=== PATIENT | male | born 1970 | race Two or more races ===

== ENCOUNTER 2024-06-03 06:55 | Inpatient (IN) | payer OTHER ==
[2024-05-31 11:06] LABS: Urine Bacteria None Seen /hpf (None Seen)
[2024-05-31 11:11] LABS: Basophils # (auto) 0.1 10 ^3/uL (0-0.2); Basophils % (auto) 0.9 % (0.0-2.0); Eosinophils # (auto) 0.3 10 ^3/uL (0-0.8); Eosinophils % (auto) 2.5 % (0.0-7.0); Hematocrit 47.9 % (41.0-53.0); Hemoglobin 16.1 g/dL (13.5-17.5); Lymphocytes # (auto) 1.8 10 ^3/uL (0.4-5.4); Lymphocytes % (auto) 12.9 % (10.0-50.0); Mean Corpuscular Hemoglobin 31.1 pg (28.0-32.0); Mean Corpuscular Hgb Conc. 33.6 g/dL (32.0-36.0); Mean Corpuscular Volume 92.4 fL (80.0-100.0); Monocytes % (auto) 7.3 % (0.0-12.0); Neutrophils # (auto) 10.6 10 ^3/uL (1.6-8.6); Neutrophils % (auto) 76.4 % (37.0-80.0); Platelet Count (auto) 230 10^3/uL (140-450); Red Blood Cells 5.18 10^6/uL (4.5-5.90); Red Cell Distribution Width 13.5 % (11.8-14.3); White Blood Cell 13.9 10^3/uL (4.4-10.8)
[2024-05-31 11:23] LABS: Urine Blood Negative /uL (Negative); Urine Clarity Clear (Clear); Urine Color Light-Yellow (Yellow); Urine Protein, UAD Negative (Negative); Urine Specific Gravity 1.013 (1.001-1.035); Urine Squamous Epithelial Cell FEW /hpf (<5); Urine Urobilinogen Normal (Negative); Urine WBC 1 /HPF (0-3)
[2024-05-31 11:33] LABS: INR 0.97 (0.9-1.15); Partial Thromboplastin Time 27.5 SEC (24.5-34.5); Prothrombin Time 10.3 sec (9.3-11.8)
[2024-05-31 11:52] LABS: Alanine Aminotransferase 57 U/L (7-40); Albumin 5.1 g/dL (3.2-4.8); Alkaline Phosphatase 99 U/L (46-116); Anion Gap 4 (5-15); Aspartate Aminotransferase 31 U/L (13-40); BUN/Creatinine Ratio 15.5 (10.0-20.0); Blood Urea Nitrogen 15 mg/dL (9-23); Calcium 10.6 mg/dL (8.7-10.4); Carbon Dioxide 29 mmol/L (20-31); Chloride 107 mmol/L (98-107); Glucose 158 mg/dL (74-106); Potassium 4.5 mmol/L (3.5-5.1); Sodium 140 mmol/L (136-145); Total Protein 7.6 g/dL (5.7-8.2)
[2024-05-31 11:53] LABS: Bilirubin, Total 0.6 mg/dL (0.2-1.0)
[~2024-06-03] VITALS: Ht 170.2 cm; Wt 97.5 kg
[2024-06-03] VITALS (9 sets, daily range): BP systolic 83–102; BP diastolic 38–56; PULSE 68–99; RESP 16–19; TEMP 97.3–97.9; O2SAT 95–100
[~2024-06-03 06:55] MED LIST: ATOR-507 PO; CETI-195 PO; LISI-283 PO; MELA1TAB PO; NAP500T PO; SERT-160 PO; SILD100T PO
[2024-06-03] MEDS: ACETAMINOPHEN IV 100 ML IV ONE (07:34)
[2024-06-03] MEDS ORDERED: KETAMINE 50mg/ML 1ml syringe ONE (08:24)
[2024-06-03] MEDS ORDERED: fentaNYL CITRATE 100 MCG/2 ML VL ONE (08:24)
[2024-06-03] MEDS ORDERED: MORPHINE SULF PF 5 MG/10 ML VIAL ONE (08:24)
[2024-06-03] MEDS ORDERED: ONDANSETRON HCL 4 MG/2 ML VIAL ONE (08:25)
[2024-06-03] MEDS ORDERED: SODIUM CHLORIDE LOCK 10 ML ONE (08:25)
[2024-06-03] MEDS ORDERED: DexAMETHasone SOD PHOS 10MG/1ML VIAL INJ ONE (08:25)
[2024-06-03] MEDS ORDERED: MIDAZOLAM HCL 2MG/2ML 2ml VIAL (1mg/ml) ONE ×2 (08:25)
[2024-06-03] MEDS ORDERED: LIDOCAINE 1% INJ PF 5ML AMP ONE (08:25)
[2024-06-03] MEDS ORDERED: PROPOFOL 10 MG/ML 20 ML IV ONE (08:25)
[2024-06-03] MEDS: PREGABALIN CAPSULE 75 MG CAP PO ONE (08:30)
[2024-06-03] MEDS: CELECOXIB 100 MG CAP PO ONE (08:30)
[2024-06-03] MEDS: ACETAMINOPHEN IV 1000 MG/100ML (10MG/ML) IV ONE (08:30)
[2024-06-03] MEDS: CELECOXIB 100 MG CAP ONE (08:40)
[2024-06-03] MEDS: BUPIVACAINE 0.25% INJ 50ML VIAL ONE (09:02)
[2024-06-03] MEDS: VANCOMYCIN HCL 1000 MG VL ONE ×2 (09:04→10:24)
[2024-06-03] MEDS: TETRACAINE 1% INJ 2 ML VIAL IJ ONE (09:20)
[2024-06-03] MEDS: ceFAZolin 2 GM/D5W100ml 100 ML IV ONE (09:33)
[2024-06-03] MEDS: CEFEPIME 1GM/ 50ML 50 ML IV ONE (09:39)
[2024-06-03] MEDS: TRANEXAMIC ACID 20 ML ONE (09:50)
[2024-06-03] MEDS: ceFAZolin 1GM/50ML 50 ML IV SCH (10:15)
[2024-06-03] MEDS ORDERED: HYDROmorphone HCL 2 MG/ML VL/or syr IV PRN ×3 (10:15→11:30)
[2024-06-03] MEDS ORDERED: ONDANSETRON HCL 4 MG/2 ML VIAL IV PRN (10:15)
[2024-06-03] MEDS ORDERED: OXYCODONE W/ ACETAMINOPHEN 5/325MG TABLET PO PRN (10:15)
[2024-06-03] MEDS: LACTATED RINGER'S 1,000 ML IV SCH (10:15)
[2024-06-03] MEDS ORDERED: NITROGLYCERIN 0.4 MG SL TAB SL PRN (10:15)
[2024-06-03] MEDS ORDERED: MORPHINE SULFATE INJ 2 MG/ml SYRG IV PRN ×2 (10:15→12:11)
--- NOTE | 2024-06-03 11:09 | DVH ---
CLINICAL INDICATION: INTRAOPERATIVE TECHNIQUE: Intraoperative AP view of the left hip was performed. XY L HIP 1V XRAY Comparison: Report of left hip radiographs dated 02/19/2024. FINDINGS/IMPRESSION: : Postoperative changes of left total hip arthroplasty without evidence of periprosthetic fracture, dis location, or other complication.
[2024-06-03] MEDS: ONDANSETRON HCL 4 MG/2 ML VIAL IV ONE (11:30)
[2024-06-03] MEDS ORDERED: diphenhdrAMINE HCL 50 MG/1 ML VL IV PRN (11:30)
[2024-06-03] MEDS ORDERED: KETOROLAC TROMETH 30 MG/ML 1ML VIAL IV ONE (11:30)
[2024-06-03] MEDS ORDERED: MORPHINE SULFATE 4 MG/ML SYR/VIAL IV PRN (11:30)
[2024-06-03] MEDS ORDERED: NALOXONE HCL 0.4 MG/ML VIAL IV PRN (11:30)
[2024-06-03] MEDS: SODIUM CHLOR 0.9% PF (SALINE LOCK) 10ML VIAL/SYR IV SCH (14:00)
--- NOTE | 2024-06-03 14:09 | DVH ---
CLINICAL INDICATION: left SURYA TECHNIQUE: 1 radiographic views of the pelvis were obtained. Comparison: None FINDINGS/IMPRESSION: There is no evidence of acute fracture or dislocation. Status post left hip arthroplasty. The visualized joint space is well maintained. The alignment is anatomical. There is no radiopaque foreign body.
--- NOTE | 2024-06-03 18:07 | DVHOP2 ---
Operative Report - 2 Report Details Date: 06/03/24 Preop Diagnosis: Left hip osteoarthritis Postop Diagnosis: as above Surgeon: Robert Velarde MD Fisher Quahog: Ajit ROSA Anesthesiologist: Ad LAND Anesthesia: Regional Consent: The patient was informed of the risks and benefits of the procedure. These include but are not limited to complications of anesthesia, postoperative infection, incomplete relief of symptoms, recurrence of symptoms, damage to blood vessels, nerves and tendons, deep venous thrombosis, pulmonary embolism and possible need for repeat surgery in the future. Estimated Blood Loss: 300 cc Name of Procedure Performed Left total hip arthroplasty using computer navigation Procedure Details Procedure Details: INDICATION: This patient has failed non-operative treatments for hip arthritis and is now indicated for a total hip replacement. Preoperatively in the waiting area as well as in the office, I had a long discussion with the patient regarding the plan, the expected outcome, the risks, benefits, and alternatives of surgery. The risks include, but are not limited to, infection (which may require future surgery and removal of implants) , bleeding (which may require a transfusion), damage to nerves, arteries, veins, tendons, muscles and other adjacent structures. Also discussed the possibilities of dislocation, leg-length discrepancy, intraoperative fractures, implant loosening, heterotopic bone formation, and revision for variety of reasons, and medical complications etc. This was discussed at length and consent has been obtained. DESCRIPTION OF PROCEDURE: In the preoperative holding area, the consent was reviewed and the appropriate extremity was verified by the patient and marked with my initials. The patient was then transferred to the operating theatre. Appropriate anesthetia was induced. All bony prominences were well padded. A time out was performed verifying the side and site of surgery according to standard protocol. Preoperative antibiotics were given. Tranexamic acid was given. The patient was then placed in the lateral decubitus position and fixed with rigid pelvic fixation. All bony prominences were well padded and an axillary roll was placed. The affected hip area was then prepped and draped in the usual sterile fashion. Using an 11-blade, three stab incisions were made over the iliac crest. Two threaded guide pins were inserted into the crest confirming to be in bone. The pelvic array was attached to the pins and tightened. We made a standard posterolateral incision sharply through the skin and carried our dissection down through subcutaneous tissue to the underlying fascia achieving hemostasis where necessary. We incised the fascia in line with our incision. We identified and protected the sciatic nerve. We took down the external rotators and hip capsule from their insertion into the greater trochanter, tagged them and retracted them posteriorly for further protection of the sciatic nerve. A check point was placed into the greater trochanter and the hip center and leg length length were registered. We then dislocated the femoral head and performed an osteotomy of the femoral neck in accordance with our pre-operative plan. The labrum was excised with a long-handle knife, and we exposed the acetabular rim and cotyloid fossa. We then reamed up to our final size in accordance with the preoperative plan. We copiously irrigated and then impacted the final cup into position. We confirmed the position with the robotic navigation guidance. We placed a acetabular dome screws into the posterior-superior quadrant in the usual fashion. We irrigated the cup and impacted the liner, checking to make sure it was well seated. Attention was then turned to the femur. We used a box osteotome followed by a canal finder to gain entry to the canal. Intramedullary contents were suctioned and care was taken to ensure they did not touch the tissues. We sequentially reamed until good cortical contact, then broached up to out final size. We trialed with the appropriate femoral neck and head and reduced the hip. The hip was taken through a full range of motion. The hip soft tissues were examined in extension and external rotation, the anterior capsule and IT band were palpated, and combined anteversion was determined to be 40 degrees. The hip was stable at maximum flexion, at 90 degrees of flexion and 45 degrees of internal rotation and the position of sleep. Leg lengths were restored as shown using the computer navigation, and the trial LTC matched preoperative and intraoperative templating. The hip was then dislocated and trial components removed. We copiously irrigated the wound and impacted the final femoral stem into position. The femoral head was impacted onto a clean and dry trunion and confirmed to be s eated. The hip was reduced ensuring to tissues in the acetabular cup. We again brought it through a full functional range of motion and there was no evidence for dislocation, instability, or impingement. The checkpoint was removed. A dilute betadine solution (17.5mL in 500mL saline) was used to wash the joint and left to sit for 3 minutes. This was then irrigated out with copious amounts of pulse lavage. We sprinkled 1g vancomycin powder below the fascia and 1g above the fascia. We copiously irrigated the wound and soft tissues. The short external rotators and capsule were repaired to the greater trochanter through drill holes, and the quadratus was repaired. We palpated the sciatic nerve in continuity without tension. The fascia was closed with vicryl and a barbed suture. We closed over the fascia with vicryl suture and re-approximated the skin with khalif. A sterile dressing was placed. We returned the patient to the supine position. We verified all lower extremity compartments were soft and compressible and that we had intact distal pulses and checked our leg length faith. We took an AP Pelvis in the operating room, which we reviewed prior to transfer. The patient was then transferred to the recovery room in stable condition. Condition Good Disposition Still a Patient ROBERT VELARDE MD Jun 03, 2024 18:07
[2024-06-03] MEDS: MELATONIN 5 MG PO SCH (22:00)
[2024-06-03] MEDS: ATORVASTATIN 20 MG TAB PO SCH (22:48)
[2024-06-03] MEDS: DOCUSATE SOD 100 MG CAP PO SCH (22:49)
[2024-06-03] MEDS: oxyCODONE ER 10 MG TAB PO SCH (22:50)
[2024-06-03] MEDS: SERTRALINE HCL 50 MG TAB PO SCH (22:51)
[2024-06-04] VITALS (23 sets, daily range): BP systolic 87–127; BP diastolic 38–75; PULSE 64–107; RESP 15–18; TEMP 97.8–99.9; O2SAT 92–98
[2024-06-04] MEDS: SODIUM CHLORIDE 0.9% 500 ML IV ONE (00:46)
[2024-06-04 07:45] LABS: Hematocrit 35.8 % (41.0-53.0); Hemoglobin 11.9 g/dL (13.5-17.5)
[2024-06-04 07:50] LABS: Alkaline Phosphatase 68 U/L (46-116); Anion Gap 5 (5-15); BUN/Creatinine Ratio 10.1 (10.0-20.0); Blood Urea Nitrogen 19 mg/dL (9-23); Calcium 9.3 mg/dL (8.7-10.4); Carbon Dioxide 25 mmol/L (20-31); Potassium 4.1 mmol/L (3.5-5.1); Sodium 139 mmol/L (136-145)
[2024-06-04 07:51] LABS: Albumin 3.6 g/dL (3.2-4.8); Bilirubin, Total 0.5 mg/dL (0.2-1.0)
[2024-06-04 07:53] LABS: Alanine Aminotransferase 64 U/L (7-40); Aspartate Aminotransferase 64 U/L (13-40); Chloride 109 mmol/L (98-107); Glucose 181 mg/dL (74-106); Total Protein 5.5 g/dL (5.7-8.2)
[2024-06-04] MEDS: ENOXAPARIN SOD 40 MG/0.4 ML SYRINGE SC SCH (08:14)
[2024-06-04] MEDS: CEFEPIME 1GM/ 50ML 50 ML IV SCH ×2 (08:14→21:56)
[2024-06-04] MEDS: HYDROCHLOROTHIAZIDE PO SCH (08:38)
[2024-06-04] MEDS: LISINOPRIL PO SCH (08:38)
[2024-06-04] MEDS: CETIRIZINE HCL 10 MG PO SCH (08:38)
--- NOTE | 2024-06-04 12:44 | DVHHP2 ---
Review of Systems Allergies: Coded Allergies: NO KNOWN ALLERGIES (Unverified , 05/31/24) Medications Current Medications Medications Dose Ordered Sig/Martha Route Start Time Stop Time Status Last Admin Dose Admin Atorvastatin Calcium 40 mg HS PO 06/03/24 22:00 06/03/24 22:48 40 MG Patient Own Medication 10 mg DAILY PO 06/04/24 10:00 Patient Own Medication 1 tab DAILY PO 06/04/24 10:00 Patient Own Medication 1 tab HS PO 06/03/24 22:00 Sertraline HCl 100 mg HS PO 06/03/24 22:00 06/03/24 22:51 100 MG Patient Own Medication 100 mg DAILY PO 06/04/24 10:00 Hold Cefepime HCl 50 ml @ 12.5 mls/hr DAILY IV 06/04/24 10:00 06/04/24 08:14 12.5 MLS/HR Lactated Ringer's 1,000 ml @ 100 mls/hr Q10H IV 06/03/24 10:15 Sodium Chloride 10 ml Q8HR IV 06/03/24 14:00 06/04/24 06:00 10 ML Oxycodone/ Acetaminophen 1 tab Q4HP PRN PO 06/03/24 10:15 Hydromorphone HCl 1 mg Q2HP PRN IV 06/03/24 10:15 Oxycodone HCl 10 mg Q12HR PO 06/03/24 22:00 06/03/24 22:50 10 MG Ondansetron HCl 4 mg Q6HP PRN IV 06/03/24 10:15 Docusate Sodium 100 mg Q12HR PO 06/03/24 22:00 06/04/24 08:15 100 MG Enoxaparin Sodium 40 mg DAILY SC 06/04/24 10:00 06/04/24 08:14 40 MG Nitroglycerin 0.4 mg Q5MINP PRN SL 06/03/24 10:15 Morphine Sulfate 2 mg Q30M PRN IV 06/03/24 10:15 Diphenhydramine HCl 25 mg Q4HP PRN IV 06/03/24 11:30 Exam Vital Signs Vital Signs Date Time Temp Pulse Resp B/P (MAP) Pulse Ox O2 Delivery O2 Flow Rate FiO2 06/04/24 11:53 95 16 96 06/04/24 10:12 98.8 107/59 (75) 98.8 06/04/24 08:00 Nasal Cannula* 2 28 Labs/Xrays Labs Test 06/04/24 06:55 05/31/24 11:00 Range/Units Hemoglobin 11.9 #L 13.5-17.5 g/dL Hematocrit 35.8 #L 41.0-53.0 % Sodium Level 139 136-145 mmol/L Potassium Level 4.1 3.5-5.1 mmol/L Chloride Level 109 H 98-107 mmol/L Carbon Dioxide Level 25 20-31 mmol/L Anion Gap 5 5-15 Blood Urea Nitrogen 19 9-23 mg/dL Creatinine 1.89 H 0.700-1.30 mg/dL Glomerular Filtration Rate Calc 42 >90 mL/min BUN/Creatinine Ratio 10.1 10.0-20.0 Serum Glucose 181 H 74-106 mg/dL Calcium Level 9.3 8.7-10.4 mg/dL Total Bilirubin 0.5 0.2-1.0 mg/dL Aspartate Amino Transferase (AST) 64 H 13-40 U/L Alanine Aminotransferase (ALT) 64 H 7-40 U/L Alkaline Phosphatase 68 46-116 U/L Total Protein 5.5 L 5.7-8.2 g/dL Albumin 3.6 3.2-4.8 g/dL White Blood Count 13.9 H 4.4-10.8 10^3/uL Red Blood Count 5.18 4.5-5.90 10^6/uL Mean Corpuscular Volume 92.4 80.0-100.0 fL Mean Corpuscular Hemoglobin 31.1 28.0-32.0 pg Mean Corpuscular Hemoglobin Concent 33.6 32.0-36.0 g/dL Red Cell Distribution Width 13.5 11.8-14.3 % Platelet Count 230 140-450 10^3/uL Mean Platelet Volume 7.5 6.9-10.8 fL Neutrophils (%) (Auto) 76.4 37.0-80.0 % Lymphocytes (%) (Auto) 12.9 10.0-50.0 % Monocytes (%) (Auto) 7.3 0.0-12.0 % Eosinophils (%) (Auto) 2.5 0.0-7.0 % Basophils (%) (Auto) 0.9 0.0-2.0 % Neutrophils # (Auto) 10.6 H 1.6-8.6 10 ^3/uL Lymphocytes # (Auto) 1.8 0.4-5.4 10 ^3/uL Monocytes # (Auto) 1.0 0-1.3 10 ^3/uL Eosinophils # (Auto) 0.3 0-0.8 10 ^3/uL Basophils # (Auto) 0.1 0-0.2 10 ^3/uL Nucleated Red Blood Cells 0.0 % Prothrombin Time 10.3 9.3-11.8 sec Prothrombin Time INR 0.97 0.9-1.15 Activated Partial Thromboplast Time 27.5 24.5-34.5 SEC Urine Color Light-yellow Yellow Urine Clarity Clear Clear Urine pH 5.0 5.0-9.0 Urine Specific [place] 1.013 1.001-1.035 Urine Protein Negative Negative Urine Ketones Negative Negative Urine Blood Negative Negative /uL Urine Nitrite Negative Negative Urine Bilirubin Negative Negative Urine Urobilinogen Normal Negative mg/dL Urine Leukocyte Esterase Negative Negative /uL Urine RBC <1 0 - 3 /hpf Urine Microscopic WBC 1 0-3 /HPF Urine Squamous Epithelial Cells Few <5 /hpf Urine Bacteria None seen None Seen /hpf Urine Glucose Normal Normal mg/dL Assessment/Plan Assessment/Plan see dictated note Plan discussed with: Patient My Orders Orders - BREEZY BUENO MD Procedure Category Date Status Time Hydromorphone PHA 06/04/24 Verified Injection (Dilaudid 12:45 Nicotine 14mg/24hr PHA 06/04/24 Verified (Nicoderm 14mg/24hr) 12:45 Nicotine 14mg/24hr PHA 06/05/24 Verified (Nicoderm 14mg/24hr) 10:00 Discontinue Tele YULIET 06/04/24 Verified 12:41 Transfer Orders XFER 06/04/24 Verified 12:41 Complete Blood Count LAB 06/05/24 Verified 06:00 Comprehensive LAB 06/05/24 Verified Metabolic Panel 06:00 Date of Service: Jun 04, 2024 Billing Provider: BREEZY BUENO MD Common Visit Codes: [id number] INP/OBS CARE (HIGH) Secondary Visit Codes: [id number] CHNG SMOKING >10MIN BREEZY BUENO MD Jun 04, 2024 12:44
[2024-06-04] MEDS ORDERED: HYDROmorphone HCL 2 MG/ML VL/or syr IV PRN (12:45)
--- NOTE | 2024-06-04 12:55 | DVHHP ---
ADMIT DATE: 06/03/2024 HISTORY OF PRESENT ILLNESS: The patient is a 54-year-old gentleman who was admitted after he underwent surgery on the left hip for DJD of the hip. The patient at this time denies any significant pain. No chest pain or shortness of breath. No nausea or vomiting. REVIEW OF SYSTEMS: Review of rest systems are otherwise currently negative. PAST MEDICAL HISTORY: Significant for hypertension, hyperlipidemia, PTSD, depression, sleep apnea. MEDICATIONS: Include Lipitor, lisinopril, hydrochlorothiazide, sertraline. ALLERGIES: No known drug allergies. SOCIAL HISTORY: Smokes about half a pack a day. Denies alcohol intake. Lives at home with his . FAMILY HISTORY: Negative. PHYSICAL EXAMINATION: GENERAL: The patient is awake and alert. VITAL SIGNS: Temperature of 98.8, pulse 93 per minute, blood pressure 107/59. SHEENT: Unremarkable. There is no JVD. No pedal edema. LUNGS: Equal bilaterally. No added sounds. CARDIOVASCULAR: S1 and S2 is regular. No murmurs. ABDOMEN: Soft. There is no organomegaly. NEUROLOGIC: Nonfocal. MUSCULOSKELETAL: The left hip currently has a dressing. ASSESSMENT AND PLAN: * Hypertension for which the patient's blood pressure medication will be held. * Acute renal failure, questionable vasomotor nephropathy. His renal function will be monitored. * Sleep apnea for which he will continue on BiPAP. * Obesity. * Hyperlipidemia. * Posttraumatic stress disorder/depression for which he will continue sertraline. * Status post left hip surgery for degenerative joint disease of the hip for which the patient will be placed on pain medication and physical therapy. * Tobacco abuse. The patient was advised to quit. He has been placed on nicotine patch. Time spent was 11 minutes. MD JEFFY Carlson/PATTI TID: [id number] RECEIPT: [id number]
[2024-06-04] MEDS: NICOTINE 14 MG/24HR TOPICAL PATCH TD ONE (16:38)
[2024-06-05] VITALS (8 sets, daily range): BP systolic 126–144; BP diastolic 79–82; PULSE 85–102; RESP 17–18; TEMP 98.3–98.9; O2SAT 97–99
--- NOTE | 2024-06-05 07:44 | DVHDS2 ---
Discharge Summary Date of Admission Jun 03, 2024 at 10:01 Date of Discharge: Jun 05, 2024 Wounds: If the wound is draining please change the gauze pad on the wound until it stops. If drainage persists past 10 days please notify our office. If there is a sticky gel dressing over your wound, you may leave this in place for as long as it is clean and dry. If it becomes loose or causes skin irritation, it is OK to remove it and place clean gauze over your wound. 1. You might notice some bruising around the surgical site, this is normal. 2. Check your temperature on a daily basis. Please note that a low-grade temp below 101 is not uncommon after surgery especially during the first 3 days. Notify the office if your temperature spikes above 101.5 after the 3rd post- operative date. 3. Many patients experience significant swelling in the thigh, this may extend below the knee and sometimes to the ankle. Swelling increases during the first week and subsides during the following week. 4. Provided you have been on a blood thinner since surgery and have been up and about at least three times per day, the risk of a blood clot is low and this swelling is an expected part of recovery. It will largely or completely resolve by your first post-operative visit. 5. [place], if present, will be removed at 2 weeks during initial post-op visit. Labs/Diagnostic Data: Laboratory Results Test 06/05/24 05:52 05/31/24 11:00 Eosinophils (%) (Auto) 2.5 % (0.0-7.0) Eosinophils # (Auto) 0.3 10 ^3/uL (0-0.8) Basophils # (Auto) 0.1 10 ^3/uL (0-0.2) Nucleated Red Blood Cells 0.0 % Prothrombin Time 10.3 sec (9.3-11.8) Prothrombin Time INR 0.97 (0.9-1.15) Activated Partial Thromboplast Time 27.5 SEC (24.5-34.5) Urine Color Light-yellow (Yellow) Urine Clarity Clear (Clear) Urine pH 5.0 (5.0-9.0) Urine Specific [place] 1.013 (1.001-1.035) Urine Protein Negative (Negative) Urine Ketones Negative (Negative) Urine Blood Negative /uL (Negative) Urine Nitrite Negative (Negative) Urine Bilirubin Negative (Negative) Urine Urobilinogen Normal mg/dL (Negative) Urine Leukocyte Esterase Negative /uL (Negative) Urine RBC <1 /hpf (0 - 3) Urine Microscopic WBC 1 /HPF (0-3) Urine Squamous Epithelial Cells Few /hpf (<5) Urine Bacteria None seen /hpf (None Seen) Urine Glucose Normal mg/dL (Normal) Brief Hx & Hospital Course: s/p left total hip arthroplasty Condition at Discharge: Good Final Diagnosis/Problems List as above Discharge Disposition: Home with Health Services Discharge Instruct/Medications Diet: Regular Diet comment: may advance diet as tolerated, drink plenty of fluids. Avoid alcohol while taking narcotics. Activity: See Comment Activity comment: 1.You can bear as much weight as you tolerate on your hip unless specifically instructed otherwise. You may use the walking aid which you were discharged with and switch to a cane whenever you feel comfortable doing so. You should use an assistive device until you can walk comfortably without it. Keep in mind that every patient moves at their own speed of recovery so take your time. 2.A physical therapist will visit you at home. 3. Although guarantees against a dislocation do not exist, the hip was noted to be sufficiently stable in surgery. Below are motions that you should dischargenot do for 4-6 weeks, depending on the surgical approach used. If there are questions, please call the office. a.Bend forward past 90 degrees b.Sit on a regular low chair, couch, car seat etc... c.Cross your legs d.Use a regular low toilet seat. e.Sleep on your stomach or on either side. 3.High impact activity such as jumping, aerobics, tennis, and skiing are not permitted during the first 3 months after surgery. These activities can contribute to accelerated wear and should be done with caution after this time. Discuss this with your surgeon if you have questions. 4.Although a bath or whirlpool is NOT permitted during the first 2-3 weeks, you may shower as soon as you get home from the hospital provided you are able to keep your bandage clean and dry and there is no wound drainage. If you are unable to place a secured covering over your bandage bed bath/sponge bath may likely be the more appropriate option. 5.Swimming is not permitted until the wound is healed, which typically occurs approximately 3-4 weeks after surgery. Follow Up/Referral: 1.Driving is not permitted within the first 2 weeks. 2.Your first postoperative visit will take place 2weeks after discharge. Please call the office to arrange this appointment. 3.Antibiotic preventative treatment is required before dental or other invasive procedures. Please ask your surgeon about this at your first postoperative visit. Your hip replacement contains metal which may activate metal detectors. You may wish to carry a letter from your surgeon to communicate this to security personnel. If you experience chest pain, shortness of breath or severe painful calf swelling, go to the nearest emergency room to be evaluated. Please call our office once your situation is stabilized. Medications: 1.You will be discharged with pain medication, Aspirin as a blood thinner and sometimes an anti-inflammatory medication such as Celebrex or Mobic might be prescribed. Please follow the instructions regarding these medicines as provided by your nurse at the hospital. 2.Narcotic pain medication has side effects, including constipation. Please ensure you continue to take stool softeners (Colace, Senna) while taking your pain medication to help protect against constipation. Getting up and moving around at least a few times per day helps with this also. 3.Lovenox 40 Sq x 12 days followed by one regular strength 325 mg coated aspirin daily for 4 weeks after surgery. Then, take one baby aspirin, 81 mg daily for 6 weeks more. A major, yet preventable, complication of Orthopaedic Surgery is a blood clot (DVT). It is important not to miss any doses of this important medication. 4.You should restart all of your prescription medications once discharged unless specifically instructed otherwise. 5.Herbal supplements may be restarted 2 weeks after surgery. Discharge Statement: "Patient was advised to return to the ER or call 911 if any headaches, dizziness, shortness of breath, chest pain, abdominal pain, bleeding, fevers, or worsening of medical condition. Patient was counseled about treatment plan, medications, possible side effects, patientverbalized understanding. All questions were answered to the best of my ability. This discharge took greater then 30 minutes in planning, reviewing documentation, counseling the patient, and discussing with other team members." ASSESSMENT ASSESSMENT Assessment as above CHARLY FRAZIER NP Jun 05, 2024 07:44
[2024-06-05 07:49] LABS: Basophils # (auto) 0.1 10 ^3/uL (0-0.2); Basophils % (auto) 0.4 % (0.0-2.0); Eosinophils # (auto) 0.3 10 ^3/uL (0-0.8); Eosinophils % (auto) 1.9 % (0.0-7.0); Hematocrit 35.2 % (41.0-53.0); Hemoglobin 11.8 g/dL (13.5-17.5); Lymphocytes # (auto) 1.9 10 ^3/uL (0.4-5.4); Mean Corpuscular Hemoglobin 30.7 pg (28.0-32.0); Mean Corpuscular Hgb Conc. 33.4 g/dL (32.0-36.0); Monocytes % (auto) 13.5 % (0.0-12.0); Neutrophils # (auto) 10.4 10 ^3/uL (1.6-8.6); Neutrophils % (auto) 71.2 % (37.0-80.0); Platelet Count (auto) 150 10^3/uL (140-450); Red Blood Cells 3.83 10^6/uL (4.5-5.90); Red Cell Distribution Width 13.2 % (11.8-14.3); White Blood Cell 14.6 10^3/uL (4.4-10.8)
[2024-06-05 07:50] LABS: Albumin 3.9 g/dL (3.2-4.8); Alkaline Phosphatase 72 U/L (46-116); Anion Gap 7 (5-15); BUN/Creatinine Ratio 17.5 (10.0-20.0); Blood Urea Nitrogen 14 mg/dL (9-23); Calcium 9.8 mg/dL (8.7-10.4); Carbon Dioxide 25 mmol/L (20-31); Potassium 3.8 mmol/L (3.5-5.1); Sodium 141 mmol/L (136-145)
[2024-06-05 07:51] LABS: Alanine Aminotransferase 60 U/L (7-40); Aspartate Aminotransferase 70 U/L (13-40); Bilirubin, Total 0.8 mg/dL (0.2-1.0); Chloride 109 mmol/L (98-107); Glucose 134 mg/dL (74-106)
[2024-06-05] MEDS: NICOTINE 14 MG/24HR TOPICAL PATCH TD SCH (10:34)
--- NOTE | 2024-06-05 10:58 | DVHPN2 ---
Progress Note Date Seen: Jun 05, 2024 Medical Necessity Reason Pt with a Central, PICC or Fol: No Subjective Patient reports: No new complaints Review of Systems: HEENT:Normal, CVS:Normal, RESPIRATORY:Normal, GI:Normal, :Normal, MSK:Normal, NEURO:Normal Objective vital signs Vital Sign Date Time Temp Pulse Resp B/P (MAP) Pulse Ox O2 Delivery O2 Flow Rate FiO2 06/05/24 08:30 98.5 88 18 144/81 (102) 98 98.5 06/05/24 07:22 Room Air 06/05/24 07:22 0 21 Total Intake and Output 06/04/24 06/04/24 06/05/24 15:00 23:00 07:00 Intake Total 1260 ml 1750 ml Output Total 600 ml 1300 ml Balance 660 ml 450 ml medications Current Medications Medications Dose Ordered Sig/Martha Route Start Time Stop Time Status Last Admin Dose Admin Atorvastatin Calcium 40 mg HS PO 06/03/24 22:00 06/04/24 21:56 40 MG Sertraline HCl 100 mg HS PO 06/03/24 22:00 06/04/24 21:55 100 MG Patient Own Medication 100 mg DAILY PO 06/04/24 10:00 Hold Lactated Ringer's 1,000 ml @ 100 mls/hr Q10H IV 06/03/24 10:15 06/04/24 16:39 100 MLS/HR Sodium Chloride 10 ml Q8HR IV 06/03/24 14:00 06/05/24 05:15 10 ML Oxycodone/ Acetaminophen 1 tab Q4HP PRN PO 06/03/24 10:15 Oxycodone HCl 10 mg Q12HR PO 06/03/24 22:00 06/05/24 10:33 10 MG Ondansetron HCl 4 mg Q6HP PRN IV 06/03/24 10:15 Docusate Sodium 100 mg Q12HR PO 06/03/24 22:00 06/05/24 10:34 100 MG Enoxaparin Sodium 40 mg DAILY SC 06/04/24 10:00 06/05/24 10:34 40 MG Nitroglycerin 0.4 mg Q5MINP PRN SL 06/03/24 10:15 Morphine Sulfate 2 mg Q30M PRN IV 06/03/24 10:15 Diphenhydramine HCl 25 mg Q4HP PRN IV 06/03/24 11:30 Hydromorphone HCl 1 mg Q3HP PRN IV 06/04/24 12:45 Nicotine 1 patch DAILY TD 06/05/24 10:00 06/05/24 10:34 1 PATCH Cefepime HCl 50 ml @ 12.5 mls/hr Q12HR IV 06/04/24 22:00 06/05/24 10:33 12.5 MLS/HR Examination: GENERAL:Normal, HEENT:Normal, NECK:Normal, LUNGS:Normal, CVS:Normal, ABDOMEN:Normal, MSK:Normal, MSK:Abnormal (left hip dressing), SKIN:Normal, NEURO:Normal, :Normal laboratory and microbiology Laboratory Tests 06/05/24 05:52 Test 06/05/24 05:52 Range/Units Serum Glucose 134 H 74-106 mg/dL Problem List/Assessment/Plan Problem List/Assessment/Plan * Hypertension for which the patient's blood pressure medication will be held. * Acute renal failure, questionable vasomotor nephropathy. His renal function will be monitored. * Sleep apnea for which he will continue on BiPAP. * Obesity. * Hyperlipidemia. * Posttraumatic stress disorder/depression for which he will continue sertraline. * Status post left hip surgery for degenerative joint disease of the hip for which the patient will be placed on pain medication and physical therapy. * Tobacco abuse. The patient was advised to quit. He has been placed on nicotine patch. advance care planning- full code- time spent 18 mins DC plan to home today Plan discussed with: Patient My Orders My Orders Orders - BREEZY BUENO MD Procedure Category Date Status Time Hydromorphone PHA 06/04/24 In Process Injection (Dilaudid 12:45 Nicotine 14mg/24hr PHA 06/05/24 In Process (Nicoderm 14mg/24hr) 10:00 Discontinue Tele YULIET 06/04/24 In Process 12:41 Transfer Orders XFER 06/04/24 Transmitted 12:41 Date of Service: Jun 05, 2024 Billing Provider: BREEZY BUENO MD Common Visit Codes: [id number] INP/OBS CARE(HIGH) Secondary Visit Codes: [id number] CARE PLAN 30 MINUTES BREEZY BUENO MD Jun 05, 2024 10:58
== END 2024-06-05 16:10 | disposition home or self-care (01) | DRG 470 ==
LOC: SUR 06:55 → OVERFLOW 10:01 → WEST WING 14:35 → TELE-WESTW 21:56 → WEST WING 06-04 13:17
PROVIDERS: ADMIT Internal Medicine; ATTEND Internal Medicine
PROC: 8E0YXBZ Computer Assisted Procedure of Lower Extremity (ICD-10-PCS; 2024-06-03)
PROC: 0SRB0JZ Replacement of Left Hip Joint with Synthetic Substitute, Open Approach (ICD-10-PCS; principal; 2024-06-03 09:31)
PROC: 5A09357 Assistance with Respiratory Ventilation, Less than 24 Consecutive Hours, Continuous Positive Airway Pressure (ICD-10-PCS; 2024-06-04)
PROC: 5A09357 Assistance with Respiratory Ventilation, Less than 24 Consecutive Hours, Continuous Positive Airway Pressure (ICD-10-PCS; 2024-06-05)
DX: M16.12 Unilateral primary osteoarthritis, left hip (principal); I10 Essential (primary) hypertension; E78.5 Hyperlipidemia, unspecified; F43.10 Post-traumatic stress disorder, unspecified; F17.210 Nicotine dependence, cigarettes, uncomplicated; F32.A Depression, unspecified; G47.30 Sleep apnea, unspecified; E66.9 Obesity, unspecified; Z68.33 Body mass index [BMI] 33.0-33.9, adult
CPT/HCPCS: 36415; 72170; 73501; 80053; 81001; 85014; 85018; 85025; 85610; 85730; 86850; 86900; 86901; 94660; 97110; 97116; 97163; 97530; G0378; J0131; J1100; J2250; J2405; J2704; J3490